=== PATIENT | male | born 1975 | race Two or more races ===

== ENCOUNTER 2017-11-24 16:50 | Emergency (ER) | payer OTHER ==
[~2017-11-24] VITALS: Ht 188 cm; Wt 115.7 kg
--- NOTE | 2017-11-24 16:50 | NUR ---
EPIGASTRIC PAIN X LAST NIGHT, NAD NOTED, VSS, RESP EVEN AND UNLABORED, PT WAS PUT ON MONITOR, WAITING FOR MD MENG.
[2017-11-24] MEDS ORDERED: MAG HYDROX/AL HYDROX/SIMETH 30 ML UDC ONE (17:09)
[2017-11-24] MEDS ORDERED: FAMOTIDINE/PF INJ 20 MG/2 ML VIAL IV ONE ×3 (17:10→17:59)
[2017-11-24 17:29] LABS: CALCIUM, SERUM 9.3 mg/dL (8.5-10.1); CREATININE 1.1 mg/dL (0.6-1.3); POTASSIUM 4.1 mmol/L (3.5-5.1)
[2017-11-24] MEDS ORDERED: IV NS 0.9% 1,000 ML BAG IV ONE (17:30)
[2017-11-24] MEDS ORDERED: MAG HYDROX/AL HYDROX/SIMETH 30 ML UDC PO ONE (17:30)
[2017-11-24 17:33] LABS: BASOPHILS % (AUTO) 0.6 % (0.0-2.0); EOSINOPHILS % (AUTO) 1.3 % (0.0-6.0); HEMATOCRIT 47 % (39-51); HEMOGLOBIN 16.1 g/dL (13.5-17.5); LYMPHOCYTES # (AUTO) 0.9 /CMM (0.8-4.8); LYMPHOCYTES % (AUTO) 17.8 % (20.0-44.0); MEAN CORPUSCULAR HGB CONC 34 g/dl (31.0-36.0); MEAN CORPUSCULAR VOLUME 90 fL (80-96); MONOCYTES # (AUTO) 0.3 /CMM (0.1-1.30); MONOCYTES % (AUTO) 7.1 % (2.0-12.0); NEUTROPHILS # (AUTO) 3.5 /CMM (1.8-8.9); NEUTROPHILS % (AUTO) 73.2 % (43.0-81.0); PLATELET COUNT (AUTO) 181 /CMM (150-450); RDW COEFFICIENT OF VARIATION 13.1 (11.5-15.0); RED BLOOD CELL COUNT(AUTO) 5.25 MIL/uL (4.5-6.0); WHITE BLOOD COUNT (AUTO) 4.8 K/uL (4.3-11.0)
[2017-11-24 17:34] LABS: ALBUMIN 3.8 g/dL (3.4-5.0); BILIRUBIN,DIRECT 0.2 mg/dL (0.0-0.2); BILIRUBIN,TOTAL 0.6 mg/dL (0.2-1.0); TOTAL PROTEIN, SERUM 8.4 g/dL (6.4-8.2)
[2017-11-24] MEDS ORDERED: LIDOCAINE VISCOUS 2% UD 15 ML UDC ONE (17:59)
[2017-11-24] MEDS ORDERED: MORPHINE SULFATE INJ 4 MG/ML DISP.SYRIN ONE ×3 (17:59→22:00)
[2017-11-24] MEDS ORDERED: LIDOCAINE VISCOUS 2% UD 15 ML UDC MM ONE (18:00)
[2017-11-24] MEDS ORDERED: MORPHINE SULFATE INJ 2 MG/ML DISP.SYRIN IV ONE ×3 (18:00→22:00)
[2017-11-24] MEDS ORDERED: FAMOTIDINE (20 MG) 20 MG TABLET PO ONE (18:00)
--- NOTE | 2017-11-24 18:12 | NUR ---
PT TO CTSCAN
--- NOTE | 2017-11-24 18:14 | NUR ---
CANCELLED PEPCID 20MG. RETURNED TO PHARMACY.
--- NOTE | 2017-11-24 19:27 | NUR ---
NGT PLACEMENT, CONFIRMED WITH SANDRA VALERO. XRAY AT BS.
--- NOTE | 2017-11-24 19:31 | NUR ---
CALLED , TRANSFERRED CALL TO
--- NOTE | 2017-11-24 19:42 | NUR ---
RECEIVED CALL FROM SHIRLEY WITH [facility], FAXED HER FACESHEET AND H&P TO [phone], NUMBER TO REACH HER IS [phone].
--- NOTE | 2017-11-24 20:24 | NUR ---
RECEIVED CALL FROM SHIRLEY WITH [facility], WAS REQUESTED TO FAX FACESHEET TO [facility] AT [phone].
--- NOTE | 2017-11-24 21:07 | NUR ---
ATTEMPTED TO CALL SHIRLEY FROM [facility] FOR UPDATE ON TRANSFER OF PT, NO ANSWER, WILL TRY AGAIN SOON.
--- NOTE | 2017-11-24 21:34 | NUR ---
CALLED SHIRLEY AT [facility] FOR UPDATE ON PT, SHE INFORMED ME PT IS GOING TO [facility] ROOM [address], MADI IS THE NURSE AND NUMBER TO GIVE REPORT IS [phone]. SHE SAID SOMEONE WILL CALL ME SOON WITH TRANSPORT INFORMATION.
--- NOTE | 2017-11-24 22:22 | NUR ---
report given to mustapha charge nurse.
[2017-11-24 23:12] VITALS: BP 128/75
== END 2017-11-24 23:13 | disposition short-term general hospital (02) ==
LOC: ER 17:00
DX: K56.609 Unspecified intestinal obstruction, unspecified as to partial versus complete obstruction (principal); Z98.890 Other specified postprocedural states
CPT/HCPCS: 36415; 71045; 74176; 80048; 80076; 83690; 85025; 87081; 96361; 96374 ×2; 96375; 96376; 99285; A4606; J2270 ×3; J3490; J7030; Z7610

== ENCOUNTER 2022-12-25 15:03 | Emergency (ER) | payer OTHER ==
--- NOTE | 2022-12-25 15:18 | NUR ---
CALLED TO TRIAGE,NO ANSWER
--- NOTE | 2022-12-25 15:30 | NUR ---
CALLED TO TRIAGE, NO ANSWER
== END 2022-12-25 15:42 | disposition left against medical advice (07) ==
LOC: ER 15:04
DX: Z53.21 Procedure and treatment not carried out due to patient leaving prior to being seen by health care provider (principal)